=== PATIENT | female | born 1995 | race Caucasian/White ===

== ENCOUNTER 2016-11-12 12:25 | Emergency (ER) | payer MEDICAID ==
[~2016-11-12] VITALS: Ht 167.6 cm; Wt 54.4 kg
[~2016-11-12 12:25] MED LIST: ALBU8.5H4; CEPH500T PO
[2016-11-12 12:48] VITALS: BP 149/106
== END 2016-11-12 13:27 | disposition home or self-care (01) ==
LOC: ER 12:28
DX: L73.9 Follicular disorder, unspecified (principal); J06.9 Acute upper respiratory infection, unspecified; J45.909 Unspecified asthma, uncomplicated
CPT/HCPCS: A4606; Z7610

== ENCOUNTER 2017-11-17 15:21 | Emergency (ER) | payer MEDICAID ==
[~2017-11-17] VITALS: Ht 167.6 cm; Wt 59.4 kg
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
[2017-11-17] MEDS ORDERED: LORAZEPAM 1 MG TABLET PO ONE (16:00)
[2017-11-17] MEDS ORDERED: LORAZEPAM 1 MG TABLET ONE (16:04)
[2017-11-17 16:10] LABS: BASOPHILS # (AUTO) 0.2 /CMM (0.0-0.2); BASOPHILS % (AUTO) 1.9 % (0.0-2.0); HEMATOCRIT 43 % (33-45); HEMOGLOBIN 14.7 g/dL (11.5-14.8); LYMPHOCYTES # (AUTO) 2.6 /CMM (0.8-4.8); LYMPHOCYTES % (AUTO) 28.7 % (20.0-44.0); MEAN CORPUSCULAR HGB CONC 34 g/dl (31.0-36.0); MEAN CORPUSCULAR VOLUME 83 fL (82-100); MONOCYTES # (AUTO) 0.6 /CMM (0.1-1.30); MONOCYTES % (AUTO) 6.8 % (2.0-12.0); NEUTROPHILS # (AUTO) 5.6 /CMM (1.8-8.9); NEUTROPHILS % (AUTO) 61.6 % (43.0-81.0); PLATELET COUNT (AUTO) 237 /CMM (150-450); RDW COEFFICIENT OF VARIATION 12.5 (11.5-15.0); RED BLOOD CELL COUNT(AUTO) 5.15 MIL/uL (4.0-5.2); WHITE BLOOD COUNT (AUTO) 9.1 K/uL (4.3-11.0)
[2017-11-17 16:19] LABS: APPEARANCE,URINE SL CLOUDY (CLEAR); BILIRUBIN,URINE NEGATIVE (NEGATIVE); BLOOD, URINE NEGATIVE Ery/uL (NEGATIVE); COLOR,URINE YELLOW (YELLOW); KETONES,URINE NEGATIVE (NEGATIVE); LEUKOCYTE ESTERASE ,URINE TRACE (NEGATIVE); NITRITE, URINE NEGATIVE (NEGATIVE); PROTEIN,URINE NEGATIVE (NEGATIVE); UGLUCOSE NEGATIVE (NEGATIVE); UROBILINOGEN,URINE 0.2 EU/dL (0.2)
[2017-11-17 16:36] LABS: ACETAMINOPHEN 20 ug/ml (10-30); ALANINE AMINOTRANSFERASE 16 U/L (12-78); ALKALINE PHOSPHATASE 74 U/L (46-116); ASPARTATE AMINOTRANSFERASE 19 U/L (15-37); BILIRUBIN,DIRECT 0.2 mg/dL (0.0-0.2); CALCIUM, SERUM 8.7 mg/dL (8.5-10.1); CARBON DIOXIDE 29 mmol/L (21-32); CHLORIDE 102 mmol/L (98-107); CREATININE 0.7 mg/dL (0.6-1.3); GLUCOSE 95 mg/dL (74-106); POTASSIUM 4.2 mmol/L (3.5-5.1); SODIUM SERUM 139 mmol/L (136-145); TOTAL PROTEIN, SERUM 7.6 g/dL (6.4-8.2); UREA NITROGEN, BLOOD 7 mg/dL (7-18)
[2017-11-17 16:40] LABS: ALCOHOL, BLOOD 0 mg/dL (0-0); SALICYLATE < 0.2 mg/dL (2.8-20.0)
[2017-11-17 17:07] LABS: BACTERIA,URINE Moderate /HPF (None Seen); RBC,URINE 0-2 /HPF (0-2); SQUAMOUS EPITHELIAL CELL,UR Few /HPF (None Seen)
--- NOTE | 2017-11-17 17:58 | NUR ---
CALLED [facility], GIVEN HOUR ETA
[2017-11-17 19:34] VITALS: BP 129/75
--- NOTE | 2017-11-17 19:34 | NUR ---
Patient discharged to home in stable condition. Written and verbal after care instructions given. Patient verbalizes understanding of instruction.
== END 2017-11-17 19:43 | disposition home or self-care (01) ==
LOC: ER 15:24
DX: R45.86 Emotional lability (principal); R45.851 Suicidal ideations; F32.9 Major depressive disorder, single episode, unspecified; F41.9 Anxiety disorder, unspecified; J45.909 Unspecified asthma, uncomplicated; F10.10 Alcohol abuse, uncomplicated; F12.10 Cannabis abuse, uncomplicated; F11.10 Opioid abuse, uncomplicated; Y90.0 Blood alcohol level of less than 20 mg/100 ml
CPT/HCPCS: 36415; 80048-TC; 80076-TC; 80305; 81000-TC; 84703-TC; 85025-TC; 87086-TC; A4606; G0480; Z7610

== ENCOUNTER 2017-12-05 14:48 | Emergency (ER) | payer MEDICAID ==
[~2017-12-05] VITALS: Ht 167.6 cm; Wt 59.4 kg
--- NOTE | 2017-12-05 15:10 | NUR ---
22 Y/O FEMALE PLACED IN BED 4 C/O LEFT ABDOMINAL PAIN WITH SPOTTING.
[2017-12-05] MEDS ORDERED: MORPHINE SULFATE INJ 2 MG/ML DISP.SYRIN IV ONE (15:30)
[2017-12-05] MEDS ORDERED: ONDANSETRON HCL/PF 4 MG/2 ML VIAL IVP ONE (15:30)
[2017-12-05 15:53] LABS: BASOPHILS # (AUTO) 0.1 /CMM (0.0-0.2); BASOPHILS % (AUTO) 1.1 % (0.0-2.0); EOSINOPHILS % (AUTO) 0.8 % (0.0-6.0); HEMATOCRIT 44 % (33-45); HEMOGLOBIN 14.7 g/dL (11.5-14.8); LYMPHOCYTES # (AUTO) 2.4 /CMM (0.8-4.8); LYMPHOCYTES % (AUTO) 23.7 % (20.0-44.0); MEAN CORPUSCULAR HGB CONC 34 g/dl (31.0-36.0); MEAN CORPUSCULAR VOLUME 84 fL (82-100); MONOCYTES # (AUTO) 0.6 /CMM (0.1-1.30); MONOCYTES % (AUTO) 6.4 % (2.0-12.0); NEUTROPHILS # (AUTO) 6.9 /CMM (1.8-8.9); PLATELET COUNT (AUTO) 397 /CMM (150-450); RDW COEFFICIENT OF VARIATION 12.8 (11.5-15.0); RED BLOOD CELL COUNT(AUTO) 5.21 MIL/uL (4.0-5.2); WHITE BLOOD COUNT (AUTO) 10.1 K/uL (4.3-11.0)
[2017-12-05 15:58] LABS: APPEARANCE,URINE Cloudy (CLEAR); BILIRUBIN,URINE Negative (NEGATIVE); BLOOD, URINE Trace-lysed Ery/uL (NEGATIVE); COLOR,URINE Yellow (YELLOW); KETONES,URINE Negative (NEGATIVE); LEUKOCYTE ESTERASE ,URINE Negative (NEGATIVE); NITRITE, URINE Negative (NEGATIVE); PH,URINE 7.5 (5.0-8.0); PROTEIN,URINE Negative (NEGATIVE); UGLUCOSE Negative (NEGATIVE); UROBILINOGEN,URINE 0.2 EU/dL (0.2)
[2017-12-05] MEDS ORDERED: ONDANSETRON HCL/PF 4 MG/2 ML VIAL ONE (16:00)
[2017-12-05] MEDS ORDERED: HYDROMORPHONE 1 MG/1 ML DISP.SYRIN IV ONE ×2 (16:00→17:30)
--- NOTE | 2017-12-05 16:00 | NUR ---
FAXED [facility] [phone] FOR LABS AND ULTRASOUND RECORDS FOR THIS PATIENT.
[2017-12-05 16:02] LABS: CALCIUM, SERUM 9.3 mg/dL (8.5-10.1); CREATININE 0.7 mg/dL (0.6-1.3); POTASSIUM 3.5 mmol/L (3.5-5.1)
[2017-12-05] MEDS ORDERED: HYDROMORPHONE 1 MG/1 ML DISP.SYRIN ONE ×2 (16:02→17:20)
[2017-12-05 16:10] LABS: BACTERIA,URINE 3+ /HPF (None Seen); RBC,URINE 0-2 /HPF (0-2); SQUAMOUS EPITHELIAL CELL,UR Rare /HPF (None Seen); WBC,URINE NONE SEEN /HPF (0-3)
--- NOTE | 2017-12-05 16:13 | NUR ---
H/L 20G PLACED LEFT A/C. BLOOD DRAWN AND SENT. PT MEDICATED FOR PAIN. WAITING FOR URINE.
--- NOTE | 2017-12-05 17:18 | NUR ---
US IN PROGRESS. PT IN PAIN. MORE DILAUDID ORDERED.
--- NOTE | 2017-12-05 17:23 | NUR ---
DILAUDID GIVE. PAIN RELIEVED.
--- NOTE | 2017-12-05 17:47 | NUR ---
ULTRASOUND FINISHED. ALL RESULTS BACK.
[2017-12-05] MEDS ORDERED: CT SWABBABLE VALVE TRANS SET 1 EA INFUS.SET MC ONE (18:22)
[2017-12-05] MEDS ORDERED: IV NS 0.9% 250 ML IV ONE (18:22)
[2017-12-05] MEDS ORDERED: IOHEXOL-300 100 ML VIAL IV ONE (18:22)
[2017-12-05] MEDS ORDERED: LORAZEPAM INJ 2 MG/ML VIAL ONE (18:28)
[2017-12-05] MEDS ORDERED: LORAZEPAM INJ 2 MG/ML VIAL IV ONE (18:30)
--- NOTE | 2017-12-05 18:31 | NUR ---
PT ANXIOUS. MEDICATED WITH ATIVAN. PT TAKEN TO CT.
--- NOTE | 2017-12-05 19:02 | NUR ---
WAITING FOR MD TO RE-EVALUATE PT AND DETERMINE ADMISSION OR DISCHARGE.
--- NOTE | 2017-12-05 19:10 | NUR ---
RECEIVED REPORT FROM TOMY BAZZI FOR [facility]. PT RESTING IN BED WITH NO S/S OF ACUTE DISTRESS NTOED. WILL CONTINUE TO MONITOR PT.
--- NOTE | 2017-12-05 19:57 | NUR ---
Patient discharged to home in stable condition. Written and verbal after care instructions given. Patient verbalizes understanding of instruction.IV removed. Catheter intact and site benign. Pressure and 4x4 applied to site. No bleeding noted. PT AMBULATED WITH STEADY GAIT NOTED.
[2017-12-05 19:58] VITALS: BP 111/70
== END 2017-12-05 19:59 | disposition home or self-care (01) ==
LOC: ER 14:51
DX: O26.90 Pregnancy related conditions, unspecified, unspecified trimester (principal); R10.84 Generalized abdominal pain; J45.909 Unspecified asthma, uncomplicated; R10.32 Left lower quadrant pain; F10.10 Alcohol abuse, uncomplicated; F12.10 Cannabis abuse, uncomplicated; Y90.9 Presence of alcohol in blood, level not specified
CPT/HCPCS: 36415; 76856-TC; 80048-TC; 81000-TC; 84702-TC; 85025-TC; 85730-TC; 87086-TC; 87186-TC; A4606; J1170; J2060; J2405; J7050; Q9967; Z7610

== ENCOUNTER 2018-05-29 01:24 | Emergency (ER) | payer MEDICAID ==
[~2018-05-29] VITALS: Ht 167.6 cm; Wt 56.7 kg
[2018-05-29 01:40] VITALS: BP 115/82
[2018-05-29] MEDS ORDERED: LIDOCAINE 1%-EPI 1:100,000 20 ML VIAL ONE (02:02)
[2018-05-29] MEDS ORDERED: LIDOCAINE 1% INJ 50 ML MDV IJ ONE (02:14)
== END 2018-05-29 02:36 | disposition home or self-care (01) ==
LOC: ER 01:36
DX: S61.011A Laceration without foreign body of right thumb without damage to nail, initial encounter (principal); J45.909 Unspecified asthma, uncomplicated; Z88.6 Allergy status to analgesic agent; Z79.899 Other long term (current) drug therapy; W26.8XXA Contact with other sharp object(s), not elsewhere classified, initial encounter; Y93.89 Activity, other specified; Y92.89 Other specified places as the place of occurrence of the external cause; Y99.8 Other external cause status
CPT/HCPCS: 12001; 99283; A6402; J3490 ×2

== ENCOUNTER 2018-09-20 00:15 | Emergency (ER) | payer MEDICAID, OTHER ==
[~2018-09-20] VITALS: Ht 167.6 cm; Wt 59.0 kg
--- NOTE | 2018-09-20 00:30 | NUR ---
URINE COLLECTED AND SENT TO LAB
[2018-09-20 00:54] LABS: APPEARANCE,URINE Clear (CLEAR); BILIRUBIN,URINE SMALL (NEGATIVE); BLOOD, URINE Trace-intact Ery/uL (NEGATIVE); COLOR,URINE Yellow (YELLOW); KETONES,URINE 40 (NEGATIVE); LEUKOCYTE ESTERASE ,URINE Small (NEGATIVE); NITRITE, URINE Negative (NEGATIVE); PROTEIN,URINE Negative (NEGATIVE); UGLUCOSE Negative (NEGATIVE)
[2018-09-20] MEDS ORDERED: IV NS 0.9% 1,000 ML BAG IV ONE (01:00)
[2018-09-20 01:02] LABS: BASOPHILS # (AUTO) 0.5 /CMM (0.0-0.2); BASOPHILS % (AUTO) 3.9 % (0.0-2.0); EOSINOPHILS % (AUTO) 5.9 % (0.0-6.0); HEMATOCRIT 45 % (33-45); HEMOGLOBIN 15.8 g/dL (11.5-14.8); LYMPHOCYTES # (AUTO) 2.5 /CMM (0.8-4.8); LYMPHOCYTES % (AUTO) 20.1 % (20.0-44.0); MEAN CORPUSCULAR HGB CONC 35 g/dl (31.0-36.0); MEAN CORPUSCULAR VOLUME 83 fL (82-100); MONOCYTES # (AUTO) 0.8 /CMM (0.1-1.30); MONOCYTES % (AUTO) 6.3 % (2.0-12.0); NEUTROPHILS # (AUTO) 7.8 /CMM (1.8-8.9); NEUTROPHILS % (AUTO) 63.8 % (43.0-81.0); PLATELET COUNT (AUTO) 316 /CMM (150-450); WHITE BLOOD COUNT (AUTO) 12.3 K/uL (4.3-11.0)
[2018-09-20 01:05] LABS: CARBON DIOXIDE 28 mmol/L (21-32); CHLORIDE 104 mmol/L (98-107); CREATININE 0.7 mg/dL (0.6-1.3); GLUCOSE 128 mg/dL (74-106); POTASSIUM 3.3 mmol/L (3.5-5.1); SODIUM SERUM 141 mmol/L (136-145); UREA NITROGEN, BLOOD 10 mg/dL (7-18)
[2018-09-20 01:08] LABS: ALANINE AMINOTRANSFERASE 14 U/L (12-78); ALBUMIN 3.9 g/dL (3.4-5.0); ALCOHOL, BLOOD < 3 mg/dL (0-0); ALKALINE PHOSPHATASE 89 U/L (46-116); ASPARTATE AMINOTRANSFERASE 13 U/L (15-37); BILIRUBIN,DIRECT 0.3 mg/dL (0.0-0.2); TOTAL PROTEIN, SERUM 7.7 g/dL (6.4-8.2)
[2018-09-20 01:15] LABS: ACETAMINOPHEN 0 ug/ml (10-30); SALICYLATE < 0.2 mg/dL (2.8-20.0)
[2018-09-20 01:23] LABS: BACTERIA,URINE Moderate /HPF (None Seen); SQUAMOUS EPITHELIAL CELL,UR Few /HPF (None Seen); WBC,URINE 21-50 /HPF (0-3)
[2018-09-20] MEDS ORDERED: POTASSIUM CHLORIDE 20 MEQ TAB.PRT.SR PO ONE ×2 (03:30→03:54)
[2018-09-20] MEDS ORDERED: CEPHALEXIN MONOHYDRATE 500 MG CAPSULE PO ONE ×2 (03:53→11:08)
[2018-09-20] MEDS: CEPHALEXIN MONOHYDRATE 500 MG CAPSULE PO SCH ×2 (04:05→11:17)
--- NOTE | 2018-09-20 05:45 | NUR ---
ART, WASH CREW PERSON AT THE BED SIDE
--- NOTE | 2018-09-20 05:55 | NUR ---
W/ C/O NIK. AWARE. W/ AN ORDER FRO EKG AND CXR
[2018-09-20] MEDS ORDERED: LORAZEPAM INJ 2 MG/ML VIAL IV ONE ×2 (06:30→11:30)
[2018-09-20] MEDS ORDERED: LORAZEPAM INJ 2 MG/ML VIAL ONE ×2 (06:32→11:12)
--- NOTE | 2018-09-20 07:29 | NUR ---
RECEIVED REPORT FROM TOMY MCKEON FOR [facility], PT IS ASLEEP ON BED EASILY AROUSABLE, KEPT RESTED AND COMFORTABLE, AWAITING [facility] FOR PSYCH TRANSFER.
--- NOTE | 2018-09-20 10:44 | NUR ---
ACCEPTED AT [facility]. ADMITTED BY DR MACE. # FOR REPORT, .
--- NOTE | 2018-09-20 11:05 | NUR ---
[facility] ETA 30 MINS. TRIP # [id number]
--- NOTE | 2018-09-20 11:07 | NUR ---
REPORT GIVEN TO TOMY MURPHY OF [facility] FOR [facility].
[2018-09-20 11:50] VITALS: BP 107/70
--- NOTE | 2018-09-20 11:50 | NUR ---
REPORT GIVEN TO EMT FOR PT TRANSFER.
== END 2018-09-20 12:03 ==
LOC: ER 00:17
DX: T42.4X2A Poisoning by benzodiazepines, intentional self-harm, initial encounter (principal); R29.810 Facial weakness; F44.6 Conversion disorder with sensory symptom or deficit; F23 Brief psychotic disorder; N39.0 Urinary tract infection, site not specified; E87.6 Hypokalemia; R51 Headache; F13.10 Sedative, hypnotic or anxiolytic abuse, uncomplicated; J45.909 Unspecified asthma, uncomplicated; F32.9 Major depressive disorder, single episode, unspecified; F12.10 Cannabis abuse, uncomplicated; Z88.5 Allergy status to narcotic agent; Y92.89 Other specified places as the place of occurrence of the external cause
CPT/HCPCS: 36415; 70450; 71045; 80048; 80076; 80305; 80307; 80329; 81001; 84703; 85025; 87077; 87086; 93005; 96374; 96376; 99291; G0480; J2060 ×2; J7030; 81000-TC

== ENCOUNTER 2018-10-11 18:20 | Emergency (ER) | payer MEDICAID ==
[~2018-10-11] VITALS: Ht 167.6 cm; Wt 54.4 kg
--- NOTE | 2018-10-11 18:30 | NUR ---
CAME IN FOR ABDOMINAL CRAMPS. , CONFIRMED YESTERDAY AT [facility] 08/09. +VAGINAL BLEED WHEN WIPING. TO ER BED 11, HOOKED TO MONITOR, CHANGED TO GOWN, PROVIDED W WARM BLANKET, AWAITING MD MITCHELL.
--- NOTE | 2018-10-11 18:44 | NUR ---
SEEN AND EXAMINED BY DR SELLERS
[2018-10-11] MEDS ORDERED: ONDANSETRON HCL/PF 4 MG/2 ML VIAL ONE (19:00)
[2018-10-11] MEDS ORDERED: ONDANSETRON HCL/PF - ER 4 MG/2 ML VIAL IV ONE (19:00)
[2018-10-11] MEDS ORDERED: ACETAMINOPHEN 325 MG TABLET ONE (19:00)
[2018-10-11] MEDS ORDERED: IV NS 0.9% 1,000 ML BAG IV ONE ×2 (19:00→21:00)
[2018-10-11] MEDS ORDERED: ACETAMINOPHEN 650 MG/20.3 ML UDC PO ONE (19:00)
--- NOTE | 2018-10-11 19:07 | NUR ---
US TECH AT BEDSIDE
[2018-10-11 19:12] LABS: BASOPHILS # (AUTO) 0.1 /CMM (0.0-0.2); BASOPHILS % (AUTO) 0.8 % (0.0-2.0); EOSINOPHILS % (AUTO) 1.5 % (0.0-6.0); HEMATOCRIT 46 % (33-45); LYMPHOCYTES % (AUTO) 26.5 % (20.0-44.0); MEAN CORPUSCULAR HGB CONC 35 g/dl (31.0-36.0); MEAN CORPUSCULAR VOLUME 85 fL (82-100); MONOCYTES # (AUTO) 0.8 /CMM (0.1-1.30); MONOCYTES % (AUTO) 7.1 % (2.0-12.0); NEUTROPHILS # (AUTO) 7.2 /CMM (1.8-8.9); NEUTROPHILS % (AUTO) 64.1 % (43.0-81.0); PLATELET COUNT (AUTO) 417 /CMM (150-450); RED BLOOD CELL COUNT(AUTO) 5.46 MIL/uL (4.0-5.2); WHITE BLOOD COUNT (AUTO) 11.2 K/uL (4.3-11.0)
--- NOTE | 2018-10-11 19:15 | NUR ---
PATIENT DENIES ALLERGY TO MORPHINE. REQUESTING FOR MORPHINE. MADE MD AWARE.
[2018-10-11] MEDS ORDERED: MORPHINE SULFATE INJ 2 MG/ML DISP.SYRIN ONE (19:18)
--- NOTE | 2018-10-11 19:20 | NUR ---
REPORT GIVEN TO LEW HUITRON FOR [facility]
[2018-10-11 19:25] LABS: CALCIUM, SERUM 9.5 mg/dL (8.5-10.1); CREATININE 0.9 mg/dL (0.6-1.3); POTASSIUM 3.6 mmol/L (3.5-5.1)
[2018-10-11] MEDS ORDERED: MORPHINE SULFATE INJ 2 MG/ML DISP.SYRIN IV ONE (19:30)
[2018-10-11 19:35] LABS: APPEARANCE,URINE Slightly Cloudy (CLEAR); BILIRUBIN,URINE Negative (NEGATIVE); BLOOD, URINE Negative Ery/uL (NEGATIVE); COLOR,URINE Yellow (YELLOW); KETONES,URINE Negative (NEGATIVE); LEUKOCYTE ESTERASE ,URINE Negative (NEGATIVE); NITRITE, URINE Positive (NEGATIVE); PH,URINE 6.5 (5.0-8.0); PROTEIN,URINE Negative (NEGATIVE); UGLUCOSE Negative (NEGATIVE); UROBILINOGEN,URINE 0.2 EU/dL (0.2)
[2018-10-11 19:36] LABS: BILIRUBIN,DIRECT 0.4 mg/dL (0.0-0.2); BILIRUBIN,TOTAL 2.9 mg/dL (0.2-1.0); TOTAL PROTEIN, SERUM 8.8 g/dL (6.4-8.2)
[2018-10-11 19:56] VITALS: BP 113/73
[2018-10-11 19:58] LABS: BACTERIA,URINE 2+ /HPF (None Seen); RBC,URINE NONE SEEN /HPF (0-2); SQUAMOUS EPITHELIAL CELL,UR Rare /HPF (None Seen); WBC,URINE NONE SEEN /HPF (0-3)
--- NOTE | 2018-10-11 20:55 | NUR ---
CALLED [facility]
[2018-10-11] MEDS ORDERED: CEFTRIAXONE 1 G in IV D5W 50 ML IV ONE (21:00)
[2018-10-11] MEDS ORDERED: CEFTRIAXONE 1GM BAG (ER ONLY) 50 ML IV ONE (21:02)
--- NOTE | 2018-10-11 21:20 | NUR ---
PT COMPLAINING OF PAIN, ER MD AWARE.
[2018-10-11] MEDS ORDERED: KETOROLAC TROMETHAMINE INJ 30 MG/ML VIAL IV ONE (21:30)
[2018-10-11] MEDS ORDERED: KETOROLAC TROMETHAMINE INJ 30 MG/ML VIAL ONE (21:33)
--- NOTE | 2018-10-11 21:34 | NUR ---
PT ACCEPTED OT [facility] BY DR CHEW. # FOR REPORT [phone]. ETA [id number]
--- NOTE | 2018-10-11 22:01 | NUR ---
REPORT GIVEN TO BIRGIT HUITRON FOR [facility] AT [facility]
--- NOTE | 2018-10-11 22:07 | NUR ---
REPORT GIVEN TO TORY KENNEDY FOR TRANPORT TO [facility].
== END 2018-10-11 22:15 | disposition short-term general hospital (02) ==
LOC: ER 18:20
DX: O23.01 Infections of kidney in pregnancy, first trimester (principal); O26.891 Other specified pregnancy related conditions, first trimester; E86.0 Dehydration; R94.5 Abnormal results of liver function studies; O99.341 Other mental disorders complicating pregnancy, first trimester; F41.9 Anxiety disorder, unspecified; F32.9 Major depressive disorder, single episode, unspecified; O99.511 Diseases of the respiratory system complicating pregnancy, first trimester; J45.909 Unspecified asthma, uncomplicated; Z79.899 Other long term (current) drug therapy; Z3A.00 Weeks of gestation of pregnancy not specified
CPT/HCPCS: 36415; 76705; 76856; 80048; 80076; 81001; 83690; 84702; 85025; 86850; 87077; 87086; 87186 ×2; 96361; 96365; 96375; 99285; J0696 ×2; J1885; J2270; J2405; J7030 ×2; J7060; 81000-TC

== ENCOUNTER 2018-10-12 14:07 | Emergency (ER) | payer MEDICAID ==
[~2018-10-12] VITALS: Ht 167.6 cm; Wt 57.2 kg
--- NOTE | 2018-10-12 15:03 | NUR ---
C/O ABD PAIN x 3-4 DAYS, +N/V. STATES PAIN 10/10 AND SHARP, RADIATING TO LOW BACK. WAS SEEN HERE YESTERDAY FOR SAME SYMPTOMS. DENIES SOB, DIZZINESS, WEAKNESS. DENIES HX OF APPENDECTOMY. NO ACUTE DISTRESS NOTED. SKIN INTACT. MADE COMFORTABLE AND READY FOR EVAL.
[2018-10-12] MEDS ORDERED: ONDANSETRON HCL/PF 4 MG/2 ML VIAL ONE ×2 (15:44→20:36)
[2018-10-12] MEDS ORDERED: MORPHINE SULFATE INJ 4 MG/ML DISP.SYRIN ONE ×3 (15:45→18:59)
[2018-10-12 15:56] LABS: BASOPHILS # (AUTO) 0.1 /CMM (0.0-0.2); BASOPHILS % (AUTO) 0.8 % (0.0-2.0); EOSINOPHILS % (AUTO) 1.1 % (0.0-6.0); HEMATOCRIT 41 % (33-45); HEMOGLOBIN 14.2 g/dL (11.5-14.8); LYMPHOCYTES # (AUTO) 1.9 /CMM (0.8-4.8); LYMPHOCYTES % (AUTO) 20.5 % (20.0-44.0); MEAN CORPUSCULAR HGB CONC 35 g/dl (31.0-36.0); MEAN CORPUSCULAR VOLUME 85 fL (82-100); MONOCYTES # (AUTO) 0.6 /CMM (0.1-1.30); MONOCYTES % (AUTO) 6.8 % (2.0-12.0); NEUTROPHILS # (AUTO) 6.7 /CMM (1.8-8.9); NEUTROPHILS % (AUTO) 70.8 % (43.0-81.0); PLATELET COUNT (AUTO) 307 /CMM (150-450); RED BLOOD CELL COUNT(AUTO) 4.81 MIL/uL (4.0-5.2); WHITE BLOOD COUNT (AUTO) 9.5 K/uL (4.3-11.0)
[2018-10-12] MEDS ORDERED: IV NS 0.9% 1,000 ML BAG IV ONE ×2 (16:00→20:00)
[2018-10-12] MEDS ORDERED: ONDANSETRON HCL/PF 4 MG/2 ML VIAL IVP ONE (16:00)
[2018-10-12] MEDS ORDERED: MORPHINE SULFATE INJ 2 MG/ML DISP.SYRIN IV ONE ×3 (16:00→19:00)
[2018-10-12 16:04] LABS: CALCIUM, SERUM 9.1 mg/dL (8.5-10.1); CREATININE 0.6 mg/dL (0.6-1.3); POTASSIUM 3.6 mmol/L (3.5-5.1)
[2018-10-12 16:10] LABS: ALBUMIN 4.6 g/dL (3.4-5.0); BILIRUBIN,DIRECT 0.3 mg/dL (0.0-0.2); BILIRUBIN,TOTAL 1.9 mg/dL (0.2-1.0); TOTAL PROTEIN, SERUM 7.7 g/dL (6.4-8.2)
--- NOTE | 2018-10-12 16:30 | NUR ---
ULTRASOUND AT BEDSIDE
--- NOTE | 2018-10-12 16:45 | NUR ---
PT AMBULATED TO RESTROOM
--- NOTE | 2018-10-12 17:45 | NUR ---
FRANNIE NOONAN AT BEDSIDE FOR PELVIC EXAM
[2018-10-12 18:33] LABS: APPEARANCE,URINE Slightly Cloudy (CLEAR); BILIRUBIN,URINE Negative (NEGATIVE); BLOOD, URINE Negative Ery/uL (NEGATIVE); COLOR,URINE Yellow (YELLOW); KETONES,URINE Negative (NEGATIVE); LEUKOCYTE ESTERASE ,URINE Negative (NEGATIVE); NITRITE, URINE Positive (NEGATIVE); PH,URINE 6.5 (5.0-8.0); PROTEIN,URINE Negative (NEGATIVE); UGLUCOSE Negative (NEGATIVE); UROBILINOGEN,URINE 0.2 EU/dL (0.2)
[2018-10-12 18:49] LABS: BACTERIA,URINE Many /HPF (None Seen); RBC,URINE 0-2 /HPF (0-2); SQUAMOUS EPITHELIAL CELL,UR Few /HPF (None Seen); WBC,URINE 2-3/HPF /HPF (0-3)
[2018-10-12 18:50] LABS: CALCIUM OXALATE CRYSTALS,UR Few /HPF (None Seen); MUCUS,URINE Few /LPF (None Seen); URIC ACID CRYSTALS,URINE Few /HPF (None Seen)
--- NOTE | 2018-10-12 19:05 | NUR ---
PT TAKEN TO CT VIA [facility]
--- NOTE | 2018-10-12 21:15 | NUR ---
Patient discharged to home in stable condition. Written and verbal after care instructions given. Patient verbalizes understanding of instruction.IV removed. Catheter intact and site benign. Pressure and 4x4 applied to site. No bleeding noted.
[2018-10-12 21:40] VITALS: BP 117/80
[2018-10-12] MEDS ORDERED: ONDANSETRON HCL/PF 4 MG/2 ML VIAL IV ONE (22:30)
== END 2018-10-12 21:15 | disposition home or self-care (01) ==
LOC: ER 14:07
DX: N39.0 Urinary tract infection, site not specified (principal); N76.0 Acute vaginitis; K52.9 Noninfective gastroenteritis and colitis, unspecified; F41.9 Anxiety disorder, unspecified; F32.9 Major depressive disorder, single episode, unspecified; J45.909 Unspecified asthma, uncomplicated; F12.90 Cannabis use, unspecified, uncomplicated; Z79.899 Other long term (current) drug therapy
CPT/HCPCS: 36415; 74176; 76856; 80048; 80076; 81001; 84702; 85025; 87077; 87086; 87186 ×2; 87210; 96361; 96374; 96375; 96376; 99284; J2270 ×3; J2405 ×2; J7030 ×2; 81000-TC